=== PATIENT | male | born 1940 | race Caucasian/White ===

== ENCOUNTER 2017-03-17 06:37 | Day surgery (SDC) | payer MEDICARE, OTHER ==
[2017-03-17] MEDS ORDERED: Lactated Ringers 1,000 ML IV SCH (07:15)
[2017-03-17] MEDS ORDERED: Sodium Chloride 0.9% 10 ML Syringe FLUSH PRN (07:15)
[2017-03-17] MEDS ORDERED: Propofol 200 MG/20 ML SDV IV ONE (08:30)
[2017-03-17] MEDS ORDERED: Midazolam 1 MG/ML 2 ML SDV IV ONE (08:30)
--- NOTE | 2017-03-17 09:05 | PCM.OPNOTE ---
- General Post-Op/Procedure Note Date of Surgery/Procedure: 03/17/17 Operative Procedure(s): c scope with bx Findings: normal colon Pre Op Diagnosis: change in bowel habits Post-Op Diagnosis: normal colon Anesthesia Technique: MAC Primary Surgeon: Justin Soriano Anesthesia Provider: Waleska Hendricks Pathology: random colon biopsies Complications: None Condition: Good Free Text/Narrative:: see dictation
--- NOTE | 2017-03-17 10:50 | OR ---
DATE OF OPERATION: 03/17/2017 SURGEON: Justin Soriano MD PROCEDURE PERFORMED: Colonoscopy with cold forceps biopsy. PREOPERATIVE DIAGNOSIS: Change in bowel habits. POSTOPERATIVE DIAGNOSIS: Grossly normal colon. INDICATIONS FOR PROCEDURE: This is a 76-year-old white male, who is referred with the above-mentioned complaint of change in bowel habits. He notes looser stools. He was offered and accepted colonoscopy. DESCRIPTION OF PROCEDURE: After an excellent IV sedation was administered, digital rectal exam was performed. No marked abnormality was noted. A flexible colonoscope was inserted and advanced without difficulty into the patient's cecum. The prep was excellent. The following findings were noted. Ascending colon, unremarkable. Random were biopsies taken. Transverse colon, unremarkable. Random biopsies were taken. Descending colon, unremarkable. Random biopsies were taken. Sigmoid and rectum unremarkable. Random biopsies were taken. Colon was deflated as the scope was removed. The patient tolerated the procedure well and was taken to recovery room in good condition. /[id number] LAURIE/KIKIL
[2017-03-17 10:52] VITALS: BP 134/70
== END 2017-03-17 10:24 | disposition home or self-care (01) ==
LOC: FB.SDS 06:37
PROVIDERS: ATTEND Surgery
PROC: 0DBK8ZX Excision of Ascending Colon, Via Natural or Artificial Opening Endoscopic, Diagnostic (ICD-10-PCS; principal; 2017-03-17)
PROC: 0DBN8ZX Excision of Sigmoid Colon, Via Natural or Artificial Opening Endoscopic, Diagnostic (ICD-10-PCS; 2017-03-17)
PROC: 0DBP8ZX Excision of Rectum, Via Natural or Artificial Opening Endoscopic, Diagnostic (ICD-10-PCS; 2017-03-17)
PROC: 0DBL8ZX Excision of Transverse Colon, Via Natural or Artificial Opening Endoscopic, Diagnostic (ICD-10-PCS; 2017-03-17)
PROC: 0DBM8ZX Excision of Descending Colon, Via Natural or Artificial Opening Endoscopic, Diagnostic (ICD-10-PCS; 2017-03-17)
DX: R19.4 Change in bowel habit (principal); K63.5 Polyp of colon
CPT/HCPCS: 00810; 45380; 88305; J2250; J2704; J7120

== ENCOUNTER 2017-04-14 05:40 | Emergency (ER) | payer MEDICARE, OTHER ==
[2017-04-14 06:03] VITALS: BP 127/81
--- NOTE | 2017-04-16 00:16 | ER ---
DATE SEEN: 04/14/2017 TIME SEEN: 6:18 a.m. CHIEF COMPLAINT: Bleeding. HISTORY OF PRESENT ILLNESS: This is a 76-year-old male, who had a biopsy of the right ear, neck and all night bleeding since yesterday. He comes in with a lauren towel to the ear. He complains of no other symptoms. CURRENT MEDICATIONS: Include, 1. Citalopram. 2. Finasteride. 3. He also takes Plavix. REVIEW OF SYSTEMS: No headache or chest pain. No fever. PHYSICAL EXAMINATION: VITAL SIGNS: Blood pressure is normal, temperature 97.4. : Right penile revealed a wound that is fresh with no active bleeding. NECK: The neck wound was also hemostatic. IMPRESSION: Encounter for change of dressing. PLAN: Reassurance. The nurses did Vaseline and pressure dressing. The patient released with instructions to put pressure if it begins to bleed. /[id number] MAUREEN/MED
== END 2017-04-14 06:30 | disposition home or self-care (01) ==
LOC: FB.ED 05:40
DX: Z48.817 Encounter for surgical aftercare following surgery on the skin and subcutaneous tissue (principal)
CPT/HCPCS: 12001; 99281; 99283

== ENCOUNTER 2017-07-07 14:23 | Emergency (ER) | payer MEDICARE, OTHER ==
--- NOTE | 2017-07-07 16:01 | CR ---
INDICATION: Fell onto left shoulder. LEFT SHOULDER COMPLETE: Four images of the left shoulder in three projections revealed an appearance of demineralization, suggesting osteomalacia or osteoporosis - correlate clinically. There is a very minimally distracted fracture of the distal clavicular metaphysis. No significant appearing deformity is seen. The AC joint and glenohumeral joints were intact with only very minimal degenerative change. No other bone or joint abnormality was identified. IMPRESSION: 1. Almost hairline fracture in good position and alignment distal clavicular metaphysis. 2. Osteoporosis. 3. Minimal degenerative change, mostly at the glenohumeral joint with the joint space well-maintained. MTDD
[2017-07-07 16:18] VITALS: BP 130/71
--- NOTE | 2017-07-10 12:59 | ER ---
DATE SEEN: 07/07/2017 TIME SEEN: The patient was seen at 1434 hours. CHIEF COMPLAINT: Left shoulder pain. HISTORY OF PRESENT ILLNESS: On 07/05/2017, the patient was walking his dog and got caught under the dog leash and fell down onto his left side. Since then, he has increasing left shoulder discomfort. The patient denies any shortness of breath, chest discomfort, weakness, or paresis in his left upper extremity or left hip or abdominal or flank pain. PAST MEDICAL HISTORY: Significant for obesity, cholecystectomy, aortic valvuloplasty (intracatheter dilation of aortic valve), coronary angiography, and also history significant for depression, prostatism, dyslipidemia, hypothyroidism, COPD, anticoagulation. ALLERGIES: To oxycodone. REVIEW OF SYSTEMS: HEENT: Negative. He denies cardiorespiratory symptoms or GI symptoms. He has mild muscle aches and arthritis, otherwise negative. PHYSICAL EXAMINATION: VITAL SIGNS: Blood pressure 145/74, heart rate 73, respirations 18, oxygen saturation 99%, and temperature is 35.3 degrees centigrade. GENERAL: Alert man, overweight. Marked increased abdominal girth. The patient has moderate discomfort in the left shoulder. HEENT: PERRLA intact. Pharynx without abnormalities. NECK: Supple. No bruits in the neck. LUNGS: Clear without rales, rhonchi, or wheezes. HEART: S1, S2. There is occasional irregular heartbeat. ABDOMEN: Soft. No guarding. No abdominal discomfort. He has increased abdominal girth. EXTREMITIES: With pedal edema. Dorsalis pedis and radial pulses intact. MUSCULOSKELETAL: He has mild discomfort in the distal clavicle. No stepoff noted. No dislocation of the left shoulder. Cutaneous sensation is intact forearm. Range of motion of the elbow, forearm, and wrist is normal without swelling or tenderness. Dorsalis pedis intact. Sensory intact. DIAGNOSTIC STUDIES: X-ray reveals a transverse partially displaced clavicle fracture of 3 cm proximal to the AC joint. No rib fracture noted. LABORATORY FINDINGS: CBC: Hemoglobin elevated at 16.3; otherwise, white count 8000, PMNs 72, lymphs 19, monos 6, platelets 184,000. Complete metabolic panel negative, except for GFR is 59, slightly low. BUN 18, creatinine 1.2, glucose 250. ALT is slightly elevated at 28. Troponin less than 0.01. Sodium 137, potassium 4.1, chloride 100, bicarbonate 28, BUN 22. ASSESSMENT: 1. Left distal nondisplaced clavicle fracture. 2. Obesity. 3. Hypertension, treated. 4. Hypothyroidism, treated. 5. Chronic obstructive pulmonary disease. 6. Prostatism. 7. Anticoagulation with clopidogrel. 8. Dyslipidemia. 9. Depression. PLAN: A [id number] dressing placed, but knowing the efficacy suggests it is not optimal. A sling was placed also. He felt much better with the sling. The patient dismissed to follow up with Dr. Henderson. He has medications with complication of oxycodone causing hallucinations. Consequently, we will use tramadol. Tramadol has risk of serotonin syndrome with his antidepressants: He has been warned that, if he should have tremors, rigidity, high blood pressure, fast heart rate, diaphoresis, hallucinations, or muscle stiffness, to discontinue immediately. He is going to try the tramadol with the thought that he has used a lower dose of tramadol 25 mg q.4-6 hours p.r.n. pain. /[id number] DREW/MED
== END 2017-07-07 16:05 | disposition home or self-care (01) ==
LOC: FB.ED 14:23
DX: S42.035A Nondisplaced fracture of lateral end of left clavicle, initial encounter for closed fracture (principal); I10 Essential (primary) hypertension; E03.9 Hypothyroidism, unspecified; J44.9 Chronic obstructive pulmonary disease, unspecified; E78.5 Hyperlipidemia, unspecified; F32.9 Major depressive disorder, single episode, unspecified; N40.0 Benign prostatic hyperplasia without lower urinary tract symptoms; E66.9 Obesity, unspecified; Z79.01 Long term (current) use of anticoagulants; W19.XXXA Unspecified fall, initial encounter
CPT/HCPCS: 36415; 73030-LT; 80053; 84443; 84484; 85025; 93005; 93010; 99283